=== PATIENT | female | born 1945 | race Caucasian/White ===

== ENCOUNTER 2020-10-05 08:53 | Day surgery (SDC) | payer MEDICARE, OTHER ==
[2020-09-28 15:39] LABS: BASOPHILS # (AUTO) 0.1 X10'3 (0-0.2); BASOPHILS % (AUTO) 0.8 % (0-1); EOSINOPHILS # (AUTO) 0.1 X10'3 (0-0.9); EOSINOPHILS % (AUTO) 0.9 % (0-6); LYMPHOCYTES % (AUTO) 39.4 % (21-51); MEAN CORPUSCULAR HEMOGLOBIN 30.7 PG (27.0-31.0); MEAN CORPUSCULAR HGB CONC 33.9 g/dL (33.0-36.5); MEAN CORPUSCULAR VOLUME 90.7 FL (78-98); MEAN PLATELET VOLUME 7.5 FL (7.4-10.4); MONOCYTES # (AUTO) 0.6 X10'3 (0-0.9); MONOCYTES % (AUTO) 7.2 % (2-12); NEUTROPHILS % (AUTO) 51.7 % (42-75); PRE OP HEMATOCRIT 39.9 % (35.0-45.0); PRE OP HEMOGLOBIN 13.5 g/dL (12.0-16.0); PRE OP PLATELET COUNT 240 X10'3 (140-440); RED CELL DISTRIBUTION WIDTH 13.1 % (11.5-14.5)
[2020-09-28 15:40] LABS: CLARITY,URINE CLEAR (Clear); COLOR,URINE YELLOW (Yellow); GLUCOSE, URINE NEGATIVE (Neg); KETONES,URINE NEGATIVE (Neg); LEUKOCYTE ESTERASE ,URINE NEGATIVE (Neg); NITRITES, URINE NEGATIVE (Neg); OCCULT BLOOD,URINE SMALL (Neg); PH,URINE 5.5 (4.8-8.0); PROTEIN,URINE NEGATIVE (Neg); UROBILINOGEN,URINE 0.2 E.U/dL (0.2-1.0)
[2020-09-28 15:45] LABS: BACTERIA,URINE NONE SEEN /HPF (Neg); MUCUS STRANDS FEW /LPF (Neg); RBC,URINE 0-2 /HPF (0-2); SQUAMOUS EPITHELIAL CELL,UR FEW /LPF (FEW); UA COLLECTION TYPE NON-SPECIFIED; WBC,URINE 0-4 /HPF (0-4)
[2020-09-28 15:53] LABS: ALBUMIN 3.8 G/DL (3.4-5.0); ALKALINE PHOSPHATASE 93 IU/L (46-116); BLOOD UREA NITROGEN 16 MG/DL (7-18); BUN/CREATININE RATIO 17.6 (6.6-38.0); CALCIUM 8.9 MG/DL (8.5-10.1); CHLORIDE 102 MMOL/L (99-107); CREATININE 0.91 MG/DL (0.40-0.90); PRE OP ALT 18 U/L (30-65); PRE OP ANION GAP 5 (8-16); PRE OP AST 21 U/L (10-37); PRE OP BILIRUB, TOTAL 0.6 MG/DL (0.0-1.0); PRE OP GLUCOSE 96 MG/DL (70-104); PRE OP POTASSIUM 3.5 MMOL/L (3.4-5.1); PRE OP SODIUM 138 MMOL/L (135-145); TOTAL CARBON DIOXIDE 31.4 MMOL/L (24-32); TOTAL PROTEIN 7.8 G/DL (6.4-8.2); eGFR 60 ML/MIN
[~2020-10-05] VITALS: Ht 153.7 cm; Wt 64.9 kg
[2020-10-05] VITALS (8 sets, daily range): BP systolic 135–153; BP diastolic 71–78
[~2020-10-05 08:53] MED LIST: ALPR-624 PO; DOCUMENT DATE & TIME OF BETA-BLOCKER PO ONE; HYDR12.55 PO; LISI20TA28 PO; METO-539 PO; OMEP-50 PO; SIMV5TAB58 PO; VENL150C58 PO; ZOLP10TA PO; cefazolin/dext.iso 2gm/100ml IV ONE; famotidine 20mg tablet PO ONE; meperidine/PF 25mg/ml syringe IV PRN; morphine 2 MG/ML inj. syringe IV PRN; morphine 4 MG/ML inj SYRINge IV PRN; ondansetron/PF 4mg/2ml inj IV PRN; proCHLORperazine 10 MG/2 ml inj IV PRN; ringers solution, lacted 1,000 ML IV SCH
[2020-10-05] MEDS ORDERED: bacitracin 15gm ointment TP ONE (10:58)
[2020-10-05] MEDS ORDERED: ondansetron/PF 4mg/2ml inj ONE (11:22)
[2020-10-05] MEDS ORDERED: dexamethasone sod phosphate 10mg/ml inj ONE (11:22)
[2020-10-05] MEDS ORDERED: sevoflurane 250ml liquid IH ONE (11:22)
[2020-10-05] MEDS ORDERED: midazolam 1 mg/ML 2ml injection ONE (11:29)
[2020-10-05] MEDS ORDERED: fentaNYL/PF 50MCG/1 ML 2ML syringe ONE (11:29)
[2020-10-05] MEDS ORDERED: LIDOcaine 2% (20mg/ml) 5ml vial ONE (11:30)
[2020-10-05] MEDS ORDERED: propofol inj 20 ML IV ONE (11:30)
[2020-10-05] MEDS ORDERED: ROPIVAcaine 0.5% (5mg/ml) 30ml vial ONE (11:35)
--- NOTE | 2020-10-05 13:00 | NUR ---
Received from OR via , accompanied by Anesthesiologist and report given by Anesthesiolgist. patient a&ox4, denies pain, v/s wnl, neurovascular checks intact, scd on, splint dressing to left foot cdi W/ WALKING BOOT ON, 20g piv to Rue.
--- NOTE | 2020-10-05 13:50 | NUR ---
patient a&ox4, denies pain, v/s wnl, neurovascular checks intact,. scd oFF, splint dressing to left foot cdi WITH BOOT, 20g piv to RUE D/C. I HAVE REVIEWED D/C INSTRUCTIONS AND PATIENT HAS VERBALIZED UNDERSTANDING. PATIENT D/C HOME WITH ALL BELONGINGS AND FAMILY GAVE TRASNPORT HOME.
== END 2020-10-05 13:50 | disposition home or self-care (01) ==
LOC: PAS 08:53
PROVIDERS: ATTEND Podiatrist Foot & Ankle Surgery
DX: M20.12 Hallux valgus (acquired), left foot (principal); M20.22 Hallux rigidus, left foot; M20.42 Other hammer toe(s) (acquired), left foot; M24.575 Contracture, left foot; M19.072 Primary osteoarthritis, left ankle and foot; G89.18 Other acute postprocedural pain; F41.9 Anxiety disorder, unspecified; F32.9 Major depressive disorder, single episode, unspecified; I10 Essential (primary) hypertension; K21.9 Gastro-esophageal reflux disease without esophagitis; E78.5 Hyperlipidemia, unspecified; K58.9 Irritable bowel syndrome, unspecified; E66.8 Other obesity; Z68.27 Body mass index [BMI] 27.0-27.9, adult; Z88.0 Allergy status to penicillin; Z88.2 Allergy status to sulfonamides; Z79.899 Other long term (current) drug therapy; Z98.890 Other specified postprocedural states; Z72.89 Other problems related to lifestyle; Z90.49 Acquired absence of other specified parts of digestive tract
CPT/HCPCS: 28270; 28285; 28750; 36415; 64447; 64450; 73620; 76000; 76942; 80053; 81001; 82948; 85025; 93005; A6223; C1713; J1100; J2001; J2250; J2405; J2704; J3010; J7120; A4215; A4618; A6253; A6449; A7000; J2795

== ENCOUNTER 2023-08-23 21:03 | Inpatient (IN) | payer MEDICARE, OTHER ==
[~2023-08-23] VITALS: Ht 154.9 cm; Wt 63.6 kg
[2023-08-23 12:50] VITALS: BP 207/106; PULSE 74; RESP 16; TEMP 97.9; O2SAT 96
[~2023-08-23 21:03] MED LIST changes: -DOCUMENT DATE & TIME OF BETA-BLOCKER PO ONE; -OMEP-50 PO; +OMEP20CA16 PO; -cefazolin/dext.iso 2gm/100ml IV ONE; -famotidine 20mg tablet PO ONE; -meperidine/PF 25mg/ml syringe IV PRN; -morphine 2 MG/ML inj. syringe IV PRN; -morphine 4 MG/ML inj SYRINge IV PRN; -ondansetron/PF 4mg/2ml inj IV PRN; -proCHLORperazine 10 MG/2 ml inj IV PRN; -ringers solution, lacted 1,000 ML IV SCH
[2023-08-23] MEDS ORDERED: iohexol 350MG/ML 100ml bottle IV ONE (21:24)
[2023-08-23 21:32] LABS: BASOPHILS # (AUTO) 0.1 X10'3 (0-0.2); BASOPHILS % (AUTO) 0.6 % (0-1); EOSINOPHILS # (AUTO) 0.1 X10'3 (0-0.9); EOSINOPHILS % (AUTO) 0.7 % (0-6); HEMATOCRIT 40.3 % (35.0-45.0); HEMOGLOBIN 13.9 g/dl (12.0-16.0); LYMPHOCYTES % (AUTO) 43.7 % (21-51); MEAN CORPUSCULAR HGB CONC 34.4 g/dL (33.0-36.5); MEAN CORPUSCULAR VOLUME 90.1 FL (78-98); MEAN PLATELET VOLUME 7.4 FL (7.4-10.4); MONOCYTES # (AUTO) 0.5 X10'3 (0-0.9); NEUTROPHILS # (AUTO) 4.4 X10'3 (1.8-7.7); PLATELET COUNT 270 X10'3 (140-440); RED BLOOD COUNT 4.47 X10'6 (4.20-5.60); RED CELL DISTRIBUTION WIDTH 13.7 % (11.5-14.5); WHITE BLOOD COUNT 9.1 X10'3 (4.5-11.0)
[2023-08-23 21:37] LABS: ALBUMIN 3.5 G/DL (3.4-5.0); BLOOD UREA NITROGEN 14 MG/DL (7-18); BUN/CREATININE RATIO 16.5 (10.0-20.0); CALCIUM 8.9 MG/DL (8.5-10.1); CREATININE 0.85 MG/DL (0.40-0.90); GLUCOSE 143 MG/DL (70-104); TOTAL CARBON DIOXIDE 27.6 MMOL/L (24-32); eCRCL 41 ML/MIN; eGFR 65 ML/MIN
[2023-08-23 21:41] LABS: APTT 26 SECONDS (22-32); PROTHROMBIN TIME 10.5 SECONDS (9.0-12.0)
[2023-08-23 21:42] LABS: ANION GAP 16 (8-16); CHLORIDE 101 MMOL/L (99-107); POTASSIUM 3.3 MMOL/L (3.5-5.1); SODIUM 145 MMOL/L (135-145)
[2023-08-23] MEDS: aspirin 325mg tablet PO ONE (22:47)
[2023-08-23] MEDS: clopidogrel 75mg tablet PO ONE (22:47)
[2023-08-23] MEDS ORDERED: magnesium 4gm in 100ml NS 100 ML IV PRN (23:10)
[2023-08-23] MEDS ORDERED: ondansetron/PF 4mg/2ml inj IV PRN (23:10)
[2023-08-23] MEDS ORDERED: magnesium 2GM in 50ml NS 50 ML IV PRN (23:10)
[2023-08-23] MEDS ORDERED: mag hydrox/Alum hydrox/simeth 30ml oral suspension PO PRN (23:10)
[2023-08-23] MEDS ORDERED: potassium Cl 20 mEq SR tablet PO PRN (23:10)
[2023-08-23] MEDS ORDERED: magnesium Cl slow-release 64mg tablet PO PRN (23:10)
[2023-08-23] MEDS ORDERED: magnesium hydroxide 30ml (MOM) UD suspension PO PRN (23:10)
[2023-08-23 23:57] LABS: MAGNESIUM 1.9 MG/DL (1.5-2.4); PHOSPHORUS 3.5 MG/DL (2.3-4.5)
[2023-08-23 23:59] LABS: HEMOGLOBIN A1C 5.9 % (4.5-6.2)
[2023-08-24] VITALS (9 sets, daily range): BP systolic 164–207; BP diastolic 78–106; PULSE 53–82; RESP 14–16; TEMP 97.5–98.1; O2SAT 92–100
[2023-08-24] MEDS: potassium Cl 40MEQ/1/2NS 520ml 520 ML IV PRN (03:32)
[2023-08-24 07:45] LABS: ALBUMIN 3.4 G/DL (3.4-5.0); ANION GAP 8 (8-16); BLOOD UREA NITROGEN 11 MG/DL (7-18); BUN/CREATININE RATIO 16.7 (10.0-20.0); CALCIUM 8.6 MG/DL (8.5-10.1); CHLORIDE 105 MMOL/L (99-107); CHOL/HDL RATIO 4.3 (0.00-4.99); CHOLESTEROL 227 MG/DL (0-200); CREATININE 0.66 MG/DL (0.40-0.90); GLUCOSE 95 MG/DL (70-104); HDL CHOLESTEROL 53 MG/DL (35-60); LDL CHOLESTEROL 141 MG/DL (50-100); POTASSIUM 3.1 MMOL/L (3.5-5.1); SODIUM 140 MMOL/L (135-145); TOTAL CARBON DIOXIDE 27.4 MMOL/L (24-32); TRIGLYCERIDES 112 MG/DL (20-135); eCRCL 53 ML/MIN; eGFR 87 ML/MIN
[2023-08-24] MEDS: K and/or MAG REPLACEMENT MC SCH (08:00)
[2023-08-24] MEDS: atorvastatin 20mg tablet PO SCH (08:20)
[2023-08-24] MEDS: clopidogrel 75mg tablet PO SCH (08:20)
[2023-08-24] MEDS: aspirin 81mg tab.chew PO SCH (08:21)
[2023-08-24] MEDS: losartan 25mg tablet PO SCH (08:24)
[2023-08-24] MEDS: amLODIPine 5mg tablet PO SCH (08:25)
[2023-08-24 08:45] LABS: BASOPHILS % (AUTO) 0 % (0-1); EOSINOPHILS % (AUTO) 0.5 % (0-6); HEMATOCRIT 40.9 % (35.0-45.0); HEMOGLOBIN 13.8 g/dl (12.0-16.0); LYMPHOCYTES # (AUTO) 3.6 X10'3 (1.1-4.8); LYMPHOCYTES % (AUTO) 41.6 % (21-51); MEAN CORPUSCULAR HEMOGLOBIN 30.4 PG (27.0-31.0); MEAN CORPUSCULAR HGB CONC 33.7 g/dL (33.0-36.5); MEAN CORPUSCULAR VOLUME 90.1 FL (78-98); MEAN PLATELET VOLUME 7.7 FL (7.4-10.4); MONOCYTES # (AUTO) 0.9 X10'3 (0-0.9); MONOCYTES % (AUTO) 10.2 % (2-12); NEUTROPHILS # (AUTO) 4.1 X10'3 (1.8-7.7); NEUTROPHILS % (AUTO) 47.7 % (42-75); PLATELET COUNT 247 X10'3 (140-440); RED BLOOD COUNT 4.54 X10'6 (4.20-5.60); RED CELL DISTRIBUTION WIDTH 13.9 % (11.5-14.5); WHITE BLOOD COUNT 8.6 X10'3 (4.5-11.0)
[2023-08-24] MEDS: potassium Cl 20 mEq SR tablet PO PRN (08:51)
[2023-08-24 12:04] LABS: BILIRUBIN,URINE NEGATIVE (Neg); CLARITY,URINE CLEAR (Clear); COLOR,URINE STRAW (Yellow); GLUCOSE, URINE NEGATIVE (Neg); KETONES,URINE NEGATIVE (Neg); LEUKOCYTE ESTERASE ,URINE NEGATIVE (Neg); NITRITES, URINE NEGATIVE (Neg); OCCULT BLOOD,URINE TRACE-INTACT (Neg); PROTEIN,URINE NEGATIVE (Neg); UROBILINOGEN,URINE 0.2 E.U/dL (0.2-1.0)
[2023-08-24 12:07] LABS: UA COLLECTION TYPE CLN CATCH MIDSTREAM
[2023-08-24 12:22] LABS: BACTERIA,URINE NONE SEEN /HPF (Neg); RBC,URINE NONE SEEN /HPF (0-2); SQUAMOUS EPITHELIAL CELL,UR NONE SEEN /LPF (FEW); WBC,URINE NONE SEEN /HPF (0-4)
[2023-08-24] MEDS: enoxaparin 40mg/0.4ml syringe SUBCUT SCH (19:58)
[2023-08-24] MEDS: acetaminophen 325mg tablet PO PRN (20:04)
[2023-08-25 02:00] VITALS: BP 172/79; PULSE 76; RESP 14; TEMP 97.3; O2SAT 99
[2023-08-25 07:00] VITALS: BP 162/84; PULSE 75; RESP 16; TEMP 98.1; O2SAT 98
[2023-08-25 08:08] LABS: BASOPHILS % (AUTO) 0.6 % (0-1); EOSINOPHILS # (AUTO) 0.1 X10'3 (0-0.9); HEMATOCRIT 47.7 % (35.0-45.0); LYMPHOCYTES # (AUTO) 4.2 X10'3 (1.1-4.8); LYMPHOCYTES % (AUTO) 47.1 % (21-51); MEAN CORPUSCULAR HEMOGLOBIN 30.5 PG (27.0-31.0); MEAN CORPUSCULAR HGB CONC 33.5 g/dL (33.0-36.5); MEAN CORPUSCULAR VOLUME 91.1 FL (78-98); MEAN PLATELET VOLUME 7.6 FL (7.4-10.4); MONOCYTES # (AUTO) 0.5 X10'3 (0-0.9); MONOCYTES % (AUTO) 5.9 % (2-12); NEUTROPHILS % (AUTO) 45.4 % (42-75); PLATELET COUNT 336 X10'3 (140-440); RED BLOOD COUNT 5.24 X10'6 (4.20-5.60); RED CELL DISTRIBUTION WIDTH 14.2 % (11.5-14.5); WHITE BLOOD COUNT 8.9 X10'3 (4.5-11.0)
[2023-08-25 08:20] LABS: ANION GAP 9 (8-16); BLOOD UREA NITROGEN 14 MG/DL (7-18); BUN/CREATININE RATIO 15.1 (10.0-20.0); CALCIUM 9.8 MG/DL (8.5-10.1); CHLORIDE 104 MMOL/L (99-107); CREATININE 0.93 MG/DL (0.40-0.90); GLUCOSE 150 MG/DL (70-104); POTASSIUM 4.1 MMOL/L (3.5-5.1); SODIUM 140 MMOL/L (135-145); TOTAL CARBON DIOXIDE 27.2 MMOL/L (24-32); eCRCL 38 ML/MIN; eGFR 58 ML/MIN
[2023-08-25] MEDS: ALPRAZolam 0.5mg tablet PO SCH (10:33)
[2023-08-25 11:00] VITALS: BP 170/89; PULSE 77; RESP 16; TEMP 97.8; O2SAT 95
[2023-08-25] MEDS ORDERED: ASPI81TA53 PO (11:22)
[2023-08-25] MEDS ORDERED: NOR5T PO (11:22)
[2023-08-25] MEDS ORDERED: LOSA25TA41 PO (11:22)
[2023-08-25] MEDS ORDERED: CLOP75TA34 PO (11:22)
[2023-08-25] MEDS ORDERED: ATOR20TA66 PO (11:22)
[2023-08-25] MEDS: venlafaxine XR 75mg capsule (Q24H) PO SCH (11:25)
== END 2023-08-25 12:35 | disposition home or self-care (01) | DRG 65 ==
LOC: ER 21:03 → ED HOLD 23:12 → ORTHO 4S 08-24 00:50
PROVIDERS: ADMIT Internal Medicine Critical Care Medicine; ATTEND Internal Medicine
PROC: B3281ZZ Computerized Tomography (CT Scan) of Bilateral Internal Carotid Arteries using Low Osmolar Contrast (ICD-10-PCS; principal; 2023-08-23)
PROC: B32G1ZZ Computerized Tomography (CT Scan) of Bilateral Vertebral Arteries using Low Osmolar Contrast (ICD-10-PCS; 2023-08-23)
PROC: B32R1ZZ Computerized Tomography (CT Scan) of Intracranial Arteries using Low Osmolar Contrast (ICD-10-PCS; 2023-08-23)
DX: I63.9 Cerebral infarction, unspecified (principal); I16.1 Hypertensive emergency; I10 Essential (primary) hypertension; Z66 Do not resuscitate; E87.6 Hypokalemia; E78.5 Hyperlipidemia, unspecified; Z90.710 Acquired absence of both cervix and uterus
CPT/HCPCS: 36415; 70450; 70496; 70498; 70551; 71045; 80048; 80061; 81001; 82948; 83036; 83735; 84100; 85025; 85610; 85730; 87081; 92508; 92616; 93005; 93306; 93880; 97110; 97116; 97162; 97530; 99291; G0378; J1650; J3480; J3490; Q9967

== ENCOUNTER 2024-12-23 19:44 | Emergency (ER) | payer MEDICARE, OTHER ==
[~2024-12-23] VITALS: Ht 154.9 cm; Wt 65.0 kg
[~2024-12-23 19:44] MED LIST changes: +ASPI81TA53 PO; +ATOR20TA66 PO; +CLOP75TA34 PO; -HYDR12.55 PO; -LISI20TA28 PO; +LOSA25TA41 PO; -METO-539 PO; +NOR5T PO; -OMEP20CA16 PO; -SIMV5TAB58 PO; -ZOLP10TA PO
[2024-12-23 19:48] VITALS: TEMP 97
--- NOTE | 2024-12-23 19:53 | Physician Documentation ---
History of Present Illness General Stated Complaint: FINGER LAC Time Seen by MD: 19:51 Primary Medical Doctor: Dr. 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 Laceration noted to the right thumb that is covered with a Band-Aid. Medical screening examination complete. Patient needing updated tetanus. She is pending direct bedding for further examination. She is grossly neurologically intact with no current bleeding. Medication Reconciliation Allergies: Coded Allergies: Penicillins (Unverified Allergy, Intermediate, RASH, 10/04/20) Sulfa (Sulfonamide Antibiotics) (Unverified Allergy, Intermediate, RASH, 10/04/20) cephalexin (Verified Allergy, Unknown, 12/28/14) Scheduled Alprazolam* (Xanax*), 1 MG PO DAILY, (Reported) Amlodipine Besylate (Amlodipine Besylate), 10 MG PO DAILY Aspirin (Children's Aspirin), 81 MG PO DAILY@0830 Atorvastatin Calcium (Atorvastatin Calcium), 80 MG PO DAILY Clopidogrel Bisulfate (Clopidogrel), 75 MG PO DAILY Losartan Potassium (Losartan Potassium), 25 MG PO DAILY Venlafaxine Hcl (Venlafaxine Hcl Er), 1 CAP PO DAILY, (Reported) Past Medical History Past Medical History: Hypertension Past Surgical History: hysterectomy Alcohol Use: None Drug Use: none Review of Systems All Other Systems at this time: Reviewed and Negative Musculoskeletal Thumb laceration Physical Exam Physical Exam General Appearance: alert, WD/WN, mild distress Head: normal inspection Face: normal inspection Pupils/EOM/Fundus: PERRLA Respiratory: no respiratory distress Chest: no accessory muscle use Cardiovascular: regular rate, rhythm Extremities: other (Several small lacerations to the distal thumb not involving the nail bed or joint.) Neurologic: oriented x4 Motor / Sensory: no motor deficit, no sensory deficit Psychiatric: normal mood/affect Skin: normal color, warm/dry Progress Results/Orders Results/Orders Completed Orders - JANET LEACH Tetanus/Pertuss/Diph Acell/Pf (Boostrix (12/23/24 19:55) Medications Received in ER Medications (Trade) Dose Ordered Sig/[place] Route PRN Reason Start Time Stop Time Status Last Admin Dose Admin (Boostrix vaccine syringe) 0.5 ml ONCE ONCE IMVAC 12/23/24 19:55 12/23/24 19:56 DC 12/23/24 20:04 0.5 ML Vital Signs 12/23/24 19:48 Temp 97.0 Pulse 80 Resp 16 B/P (MAP) 125/58 Pulse Ox 97 O2 Flow Rate 0 Medical Decision Making Differential Diagnosis Tonight year old female with a right thumb laceration. Lacerations are superficial and numerous to the distal portion of the thumb. Non repairable with sutures. Shared decision-making to secure wounds with Dermabond and then apply tube gauze dressing. Tetanus updated. Patient remains grossly neurol ogically intact. There was no joint involvement. Aftercare wound care instructions to include 2-3 days of keeping it covered and then have wound assess for infection. Stable for safe discharge in the emergency department. Departure Disposition: HOME / SELF CARE / HOMELESS Impression: Primary Impression: Laceration of thumb Qualified Codes: S61.011A - Laceration without foreign body of right thumb without damage to nail, initial encounter Condition: Improved Additional Instructions: Tonight in the emergency department you had skin glue applied to your thumb. The wound has been dressed and covered. Please leave covered for three days then remove dressing and assess for signs of infection if signs of infection please return to the emergency department. Otherwise allow wounds to heal by secondary intention. Make follow up appointment with the primary care physician and return to the emergency department as needed. Thank you for visiting [facility]. Referrals: NO PRIMARY CARE PROVIDER (PCP) Education Educated: Patient Educated regarding: diagnosis, treatment, prognosis Signature Scribe Signature: . Attestation: . JANET LEACH PAC Dec 23, 2024 19:53
[2024-12-23] MEDS: TETanus/Pertussis (Acell)/Diphther VAC/PF (Tdap-Adult) 0.5ml syringe IMVAC ONE (20:04)
[2024-12-23 21:10] VITALS: BP 140/70; PULSE 81; RESP 18; O2SAT 95
== END 2024-12-23 21:12 | disposition home or self-care (01) ==
LOC: ER 19:44
DX: S61.011A Laceration without foreign body of right thumb without damage to nail, initial encounter (principal); I10 Essential (primary) hypertension; Z88.0 Allergy status to penicillin; Z88.2 Allergy status to sulfonamides; Z88.1 Allergy status to other antibiotic agents; Z90.710 Acquired absence of both cervix and uterus; Z79.899 Other long term (current) drug therapy; X58.XXXA Exposure to other specified factors, initial encounter; Y93.89 Activity, other specified; Y92.89 Other specified places as the place of occurrence of the external cause; Y99.8 Other external cause status
CPT/HCPCS: 12001; 90715; 99283; A6258; A6402; G0008; Z7610; 90471; A6449